=== PATIENT | female | born 1955 | race Caucasian/White ===

== ENCOUNTER → 2020-12-06 | Day surgery (SDC) | payer MEDICARE, OTHER ==
[~2020-12-06] VITALS: Ht 165.1 cm; Wt 79.5 kg
[~2020-12-06] MED LIST: ANASTROZOLE1 MG PO; AUGMENTIN 875-1 EACH PO; AZITHROMYCIN250 MG PO; CEFDINIR300 MG PO; CHILDREN'S ASPI81 MG PO; CIPRO500 M1 PO; CIPRO500 MG PO; COREG12.5 MG PO; COZAAR50 MG PO; CRESTOR40 MG PO; ENDOCET 5-3251 EACH PO; FLAGYL500 MG PO; LIPITOR40 MG PO; METRONIDAZOLE500 MG PO; NORCO 5-325 TA1 EACH PO; ONDANSETRON ODT4 MG PO; PEPCID AC20 MG PO; PERCOCET 5-3251 EACH PO; PREDNISONE 20MG20 MG PO; PROBIOTIC1 EAC1 PO; VALSARTAN80 MG PO; VIT D3 PO; WELLBUTRIN XL150 MG PO; ZOFRAN4 M1 PO; ZOFRAN8 MG PO; ZYRTEC10 MG PO
[2020-12-06 08:00] LABS: BUN/CREAT RATIO (CALC) 16.8 RATIO; CREATININE 1.01 mg/dL (0.51-0.95)
== END | disposition home or self-care (01) ==
LOC: FAS 06:33
PROVIDERS: Anesthesiology
DX: C50.212 Malignant neoplasm of upper-inner quadrant of left female breast (principal); C77.9 Secondary and unspecified malignant neoplasm of lymph node, unspecified; I25.2 Old myocardial infarction; I10 Essential (primary) hypertension; E78.00 Pure hypercholesterolemia, unspecified; F17.210 Nicotine dependence, cigarettes, uncomplicated; N64.59 Other signs and symptoms in breast; S20.02XA Contusion of left breast, initial encounter; D24.1 Benign neoplasm of right breast; I25.10 Atherosclerotic heart disease of native coronary artery without angina pectoris; E78.5 Hyperlipidemia, unspecified; M85.80 Other specified disorders of bone density and structure, unspecified site; J44.9 Chronic obstructive pulmonary disease, unspecified; K21.9 Gastro-esophageal reflux disease without esophagitis; Z17.0 Estrogen receptor positive status [ER+]; Z20.822 Contact with and (suspected) exposure to COVID-19; Z78.0 Asymptomatic menopausal state; Z79.82 Long term (current) use of aspirin; Z79.899 Other long term (current) drug therapy; Z86.79 Personal history of other diseases of the circulatory system; Z87.19 Personal history of other diseases of the digestive system; Z88.6 Allergy status to analgesic agent; Z91.041 Radiographic dye allergy status; Z95.1 Presence of aortocoronary bypass graft
CPT/HCPCS: 36415; 76098; 77065; 80048; 93005; A9541; J1100; J1170; J1885; J2250; J2405; J2550; J2704; J3010; J7120; Q9968

== ENCOUNTER 2020-12-15 20:31 | Emergency (ER) | payer MEDICARE, OTHER ==
[~2020-12-15 20:31] MED LIST changes: -ANASTROZOLE1 MG PO; -AUGMENTIN 875-1 EACH PO; -ENDOCET 5-3251 EACH PO; -ONDANSETRON ODT4 MG PO; -PROBIOTIC1 EAC1 PO; -VIT D3 PO; -ZOFRAN4 M1 PO
[2020-12-15 21:41] LABS: BASOPHIL 1.1 % (0-2); HCT 41.9 % (37.0-47.0); HGB 13.9 g/dl (12.5-16.0); LYMPHOCYTE 30.3 % (15-48); MCHC 33.2 g/dL (32.0-36.0); MCV 93.3 fL (78.0-100.0); MONOCYTE 7.9 % (0-12); MPV 11.1 fL (6.0-9.5); NEUTROPHIL 58.5 % (41-80); NRBC 0; PLT 179 K/uL (150-400); RBC 4.49 M/uL (4.20-5.40); RDW 12.5 % (11.5-14.0); WBC 8.3 K/uL (4.0-10.5)
[2020-12-15] MEDS ORDERED: AUGMENTIN 875-1 EACH PO (21:59)
[2020-12-15 22:03] LABS: ALBUMIN 3.5 g/dL (3.4-5.0); BILIRUBIN - TOTAL 0.5 mg/dL (0.2-1.0); BUN/CREAT RATIO (CALC) 15.1 RATIO; CREATININE 1.26 mg/dL (0.51-0.95); GLOBULIN (CALCULATION) 3.6 g/dL; POTASSIUM 4.1 mmol/L (3.5-5.1); TOTAL PROTEIN 7.1 g/dL (6.4-8.2)
[2020-12-20] MEDS ORDERED: ZOFRAN4 M1 PO (13:41)
[2020-12-20] MEDS ORDERED: PROBIOTIC1 EAC1 PO (13:41)
[2020-12-20] MEDS ORDERED: VIT D3 PO (13:42)
[2020-12-28] MEDS ORDERED: ENDOCET 5-3251 EACH PO (12:03)
[2020-12-29] MEDS ORDERED: ONDANSETRON ODT4 MG PO (12:00)
[2021-01-15] MEDS ORDERED: ANASTROZOLE1 MG PO (08:52)
[2021-01-15] MEDS ORDERED: ONDANSETRON ODT4 MG PO (11:24)
[2021-01-15] MEDS ORDERED: PERCOCET 5-3251 EACH PO ×3 (11:24→11:54)
[2021-01-15] MEDS ORDERED: ZOFRAN4 M1 PO ×3 (11:33→11:54)
== END 2020-12-15 22:20 | disposition home or self-care (01) ==
LOC: FER 20:31
PROVIDERS: Nurse Practitioner Family
DX: L76.82 Other postprocedural complications of skin and subcutaneous tissue (principal); Z98.890 Other specified postprocedural states; Z95.1 Presence of aortocoronary bypass graft; Z88.5 Allergy status to narcotic agent; Z91.041 Radiographic dye allergy status; Z86.79 Personal history of other diseases of the circulatory system; Y84.8 Other medical procedures as the cause of abnormal reaction of the patient, or of later complication, without mention of misadventure at the time of the procedure
CPT/HCPCS: 36415; 80053; 83605; 85025; 99283

== ENCOUNTER → 2020-12-28 | Day surgery (SDC) | payer MEDICARE, OTHER ==
[~2020-12-28] MED LIST changes: +ANASTROZOLE1 MG PO; +AUGMENTIN 875-1 EACH PO; +ENDOCET 5-3251 EACH PO; +ONDANSETRON ODT4 MG PO; +PROBIOTIC1 EAC1 PO; +VIT D3 PO; +ZOFRAN4 M1 PO
--- NOTE | 2020-12-28 14:33 | NUR ---
1415 PATIENT BECAME FRUSTRATED. ASKED WHY SHE HADN' RECEIVED NAUSEA OR PAIN MEDS. OFFERED MEDICATION OR PAIN AND NAUSEA. PATIENT REFUSED MEDS WHEN IT WAS EXPLAINED THAT SHE WOULD HAVE TO BE MONITORED AFTER RECEIVING MEDICATION FOR A PERIOD OF TIME. PATIENT REQUESTED TO SEE COMMUNICATIONS TECHNOLOGIST. MARKET STALL VENDOR IVÁN ROJAS RN WAS MADE AWARE AND VISITED PATIENT.
== END | disposition home or self-care (01) ==
LOC: FAS 07:25
DX: C50.812 Malignant neoplasm of overlapping sites of left female breast (principal); C77.3 Secondary and unspecified malignant neoplasm of axilla and upper limb lymph nodes; F17.210 Nicotine dependence, cigarettes, uncomplicated; Z88.5 Allergy status to narcotic agent; Z79.82 Long term (current) use of aspirin; Z17.0 Estrogen receptor positive status [ER+]
CPT/HCPCS: 71045; 76000; 77001; C1788; J0690; J1170; J1644; J1885; J2250; J2405; J2704; J3010; J7120

== ENCOUNTER → 2021-01-15 | Day surgery (SDC) | payer MEDICARE, OTHER ==
[2021-01-15 09:32] LABS: BUN/CREAT RATIO (CALC) 15.9 RATIO; CREATININE 1.13 mg/dL (0.51-0.95); POTASSIUM 4.6 mmol/L (3.5-5.1)
== END | disposition home or self-care (01) ==
LOC: FAS 08:30
PROVIDERS: Anesthesiology
DX: C50.912 Malignant neoplasm of unspecified site of left female breast (principal); I10 Essential (primary) hypertension; E78.00 Pure hypercholesterolemia, unspecified; I45.10 Unspecified right bundle-branch block; I25.2 Old myocardial infarction; F17.210 Nicotine dependence, cigarettes, uncomplicated; Z95.5 Presence of coronary angioplasty implant and graft; Z88.5 Allergy status to narcotic agent; Z91.041 Radiographic dye allergy status; Z79.82 Long term (current) use of aspirin; Z79.899 Other long term (current) drug therapy
CPT/HCPCS: 36415; 80048; J1170; J2250; J2405; J2704; J3010; J7120

== ENCOUNTER → 2021-10-18 | Day surgery (SDC) | payer MEDICARE, OTHER ==
[~2021-10-18] VITALS: Ht 165.1 cm; Wt 78.5 kg
[~2021-10-18] MED LIST changes: +ALDACTONE100 MG PO; +DOXEPIN HCL25 MG PO
== END | disposition home or self-care (01) ==
LOC: FAS 08:20
DX: K29.50 Unspecified chronic gastritis without bleeding (principal); K31.89 Other diseases of stomach and duodenum; I25.10 Atherosclerotic heart disease of native coronary artery without angina pectoris; I10 Essential (primary) hypertension; E78.5 Hyperlipidemia, unspecified; I25.2 Old myocardial infarction; F17.210 Nicotine dependence, cigarettes, uncomplicated; Z88.5 Allergy status to narcotic agent; Z91.041 Radiographic dye allergy status
CPT/HCPCS: J2250; J7120